=== PATIENT | female | born 1975 | race Hispanic/Latino ===

== ENCOUNTER 2023-05-25 11:13 | Emergency (ER) | payer BC, OTHER ==
[~2023-05-25] VITALS: Ht 160 cm; Wt 87.5 kg
[2023-05-25] MEDS ORDERED: IBUPROFEN 800 MG TAB PO ONE (12:00)
[2023-05-25 12:27] LABS: BASOPHILS # (AUTO) 0.05 K/uL (0.00-0.20); BASOPHILS % (AUTO) 0.4 % (0.0-5.0); EOSINOPHILS # (AUTO) 0.27 K/uL (0.00-0.70); EOSINOPHILS % (AUTO) 2.3 % (0.0-8.0); HEMATOCRIT 28.6 % (36-48); IMMATURE GRANULOCYTE ABSOLUTE 0.06 K/uL (0-1); LYMPHOCYTES # (AUTO) 1.6 K/uL (1.0-4.8); LYMPHOCYTES % (AUTO) 13.4 % (21.0-51.0); MEAN CORPUSCULAR HEMOGLOBIN 24.5 pg (27.0-33.0); MEAN CORPUSCULAR HGB CONC 31.1 g/dL (32.0-36.0); MEAN CORPUSCULAR VOLUME 78.6 fL (79-99); MONOCYTES # (AUTO) 0.7 K/uL (0.1-1.0); MONOCYTES % (AUTO) 6.4 % (3.0-13.0); PLATELET COUNT (AUTO) 393 K/uL (130-400); RED BLOOD CELL COUNT(AUTO) 3.64 MIL/uL (4.00-5.50); RED CELL DISTRIBUTION WIDTH 14.4 % (11.0-15.5); WHITE BLOOD COUNT (AUTO) 11.6 K/uL (4.8-10.8)
[2023-05-25 12:30] LABS: BILIRUBIN,URINE NEGATIVE (NEGATIVE); GLUCOSE, URINE (UA) NEGATIVE (NEGATIVE); KETONES,URINE 15 mg/dL (NEGATIVE); LEUKOCYTE ESTERASE ,URINE MODERATE Leu/uL (NEGATIVE); NITRATE,URINE POSITIVE (NEGATIVE); OCCULT BLOOD,URINE LARGE (NEGATIVE); PROTEIN,URINE >=300 mg/dL (NEGATIVE)
[2023-05-25 12:32] LABS: HCG,QUALITATIVE URINE NEGATIVE (NEGATIVE)
[2023-05-25 12:33] LABS: ADD UA MICROSCOPIC YES; APPEARANCE,URINE CLOUDY (CLEAR); COLOR,URINE RED (YELLOW)
[2023-05-25 12:36] LABS: CREATININE 0.6 mg/dL (0.5-1.5); POTASSIUM 3.6 mmol/L (3.5-5.1)
[2023-05-25 12:38] LABS: INR <= 0.93 (0.85-1.15); PROTHROMBIN TIME 10.2 SEC (9.6-11.6)
[2023-05-25 12:39] LABS: PARTIAL THROMBOPLASTIN TIME 26.2 SEC (26.3-35.5)
[2023-05-25 12:41] LABS: ALBUMIN 3.5 g/dL (3.5-5.0); BILIRUBIN,TOTAL 0.3 mg/dL (0.2-1.0); TOTAL PROTEIN, SERUM 7.3 g/dL (6.0-8.3)
[2023-05-25] MEDS ORDERED: AMOX/CLAV 875/125MG TAB PO ONE (13:00)
[2023-05-25 13:13] LABS: RBC,URINE TNTC /HPF (0-1)
[2023-05-25 13:21] LABS: SQUAMOUS EPITHELIAL CELL,UR Few /HPF (0-2)
[2023-05-25 13:26] LABS: BACTERIA,URINE Few /HPF (None Seen)
[2023-05-25] MEDS ORDERED: IBUP-2077 PO (13:57)
[2023-05-25] MEDS ORDERED: AMOX1TAB16 PO (13:57)
[2023-05-25 14:03] VITALS: BP 166/70; PULSE 94; RESP 16; O2SAT 100
== END 2023-05-25 14:05 | disposition home or self-care (01) ==
LOC: EDH 11:13
DX: N93.8 Other specified abnormal uterine and vaginal bleeding (principal); D64.9 Anemia, unspecified; Z79.899 Other long term (current) drug therapy; Z98.890 Other specified postprocedural states
CPT/HCPCS: 36415; 76856; 80053; 81001; 81025; 85025; 85610; 85730; 87088